=== PATIENT | male | born 1965 | race Caucasian/White ===

== ENCOUNTER 2017-07-10 10:21 | Emergency (ER) | payer BC ==
[~2017-07-10] VITALS: Ht 180.3 cm; Wt 69.5 kg
[2017-07-10 10:22] VITALS: BP 170/96
[2017-07-10] MEDS ORDERED: MELO7.5T7 (10:53)
[2017-07-10] MEDS ORDERED: IBUP-1022 PO (10:53)
[2017-07-10] MEDS ORDERED: RANI150T (10:53)
[2017-07-10] MEDS ORDERED: ACET-683 PO (10:53)
[2017-07-10] MEDS ORDERED: CYCL5TAB PO (10:54)
[2017-07-10] MEDS ORDERED: OXYC1TAB23 PO (11:31)
== END 2017-07-10 11:42 | disposition home or self-care (01) ==
LOC: M ED 10:21
DX: M54.12 Radiculopathy, cervical region (principal); Z72.0 Tobacco use

== ENCOUNTER → 2020-01-30 | Outpatient (CLI) | payer BC ==
[~2020-01-30] MED LIST: ACET-683 PO; CYCL5TAB PO; IBUP-1022 PO; MELO7.5T7; OXYC1TAB23 PO; PANT40TA29 PO; RANI150T; SILD20TA11 PO
== END ==
LOC: M LABSMTC 11:19
PROVIDERS: ATTEND Anesthesiology
DX: Z01.818 Encounter for other preprocedural examination (principal); Z11.59 Encounter for screening for other viral diseases
CPT/HCPCS: C9803; U0003

== ENCOUNTER 2020-02-04 06:48 | Day surgery (SDC) | payer BC ==
[~2020-02-04] VITALS: Ht 180.3 cm; Wt 65.8 kg
[2020-02-04] MEDS ORDERED: NS 1,000 ML IV ONE (07:00)
[2020-02-04] MEDS ORDERED: LIDOCAINE 2% 100MG/5ML SDV (FOR ANES.) As Ordered ONE (07:08)
[2020-02-04] MEDS ORDERED: propofoL 200 MG/20 ML VIAL As Ordered ONE (07:08)
[2020-02-04] MEDS ORDERED: fentaNYL 100 MCG/2 ML INJECTION (J3010) As Ordered ONE (07:12)
--- NOTE | 2020-02-04 07:45 | ROOR ---
Patient Name: Kyrie Hook Procedure Date: 02/04/2020 7:31 AM Date of : 1965 Age: 55 Room: [facility] Gender: Male Note Status: Finalized Procedure: Upper Endoscopy + Biopsies Indications: Heartburn, Exclusion of Christian's esophagus Providers: Blu Daniels MD Referring MD: James Coronado MD Requesting Provider: Medicines: Monitored Anesthesia Care Complications: No immediate complications. Procedure: Pre-Anesthesia Assessment: - The heart rate, respiratory rate, oxygen saturations, blood pressure, adequacy of pulmonary ventilation, and response to care were monitored throughout the procedure. The Endoscope was introduced through the mouth, and advanced to the second part of duodenum. The upper GI endoscopy was accomplished without difficulty. The patient tolerated the procedure well. Findings: The Z-line was irregular and was found 45 cm from the incisors. Multiple biopsies were obtained with cold forceps for evaluation to rule out Christian's Esophagus randomly at the gastroesophageal junction. A small hiatal hernia was present. No other significant abnormalities were identified in a careful examination of the stomach. The exam of the duodenum was otherwise normal. Impression: - Z-line irregular, 45 cm from the incisors. - Small hiatal hernia. - Multiple biopsies were obtained at the gastroesophageal junction. - The examination was otherwise normal. Recommendation: - Patient has a contact number available for emergencies. The signs and symptoms of potential delayed complications were discussed with the patient. Return to normal activities tomorrow. Written discharge instructions were provided to the patient. - High fiber diet. - Discharge patient to home. - Follow an antireflux regimen. - Continue present medications. - Await pathology results. - Telephone GI clinic for pathology results in 1 week. - Repeat upper endoscopy for surveillance based on pathology results. - The findings and recommendations were discussed with the patient. Blu Daniels MD Blu Daniels MD 02/04/2020 7:45:05 AM Electronically signed by Blu Daniels MD Number of Addenda: 0 Note Initiated On: 02/04/2020 7:31 AM Estimated Blood Loss: Estimated blood loss: none.
--- NOTE | 2020-02-04 08:06 | ROOR ---
Patient Name: Kyrie Hook Procedure Date: 02/04/2020 7:31 AM Date of : 1965 Age: 55 Room: [facility] Gender: Male Note Status: Finalized Procedure: Total Colonoscopy to Cecum + Biopsy Polypectomy Indications: Colon cancer screening in patient at increased risk: Colorectal cancer in brother Providers: Blu Daniels MD Referring MD: James Coronado MD Requesting Provider: Medicines: Monitored Anesthesia Care Complications: No immediate complications. Procedure: Pre-Anesthesia Assessment: - The heart rate, respiratory rate, oxygen saturations, blood pressure, adequacy of pulmonary ventilation, and response to care were monitored throughout the procedure. The Colonoscope was introduced through the anus and advanced to the cecum, identified by appendiceal orifice and ileocecal valve. The colonoscopy was performed without difficulty. The patient tolerated the procedure well. The quality of the bowel preparation was excellent. Findings: The perianal and digital rectal examinations were normal. Non-bleeding internal hemorrhoids were found during retroflexion. The hemorrhoids were small and Grade I (internal hemorrhoids that do not prolapse). Two flat polyps were found in the rectum. The polyps were diminutive in size. These polyps were removed with a cold biopsy forceps. Resection and retrieval were complete. No other significant abnormalities were identified in a careful examination of the remainder of the colon. The exam was otherwise without abnormality on direct and retroflexion views. Impression: - Non-bleeding internal hemorrhoids. - Two diminutive polyps in the rectum, removed with a cold biopsy forceps. Resected and retrieved. - The examination was otherwise normal on direct and retroflexion views. - The exam was otherwise normal to the cecum. Recommendation: - Patient has a contact number available for emergencies. The signs and symptoms of potential delayed complications were discussed with the patient. Return to normal activities tomorrow. Written discharge instructions were provided to the patient. - High fiber diet. - Discharge patient to home. - Continue present medications. - Await pathology results. - Telephone GI clinic for pathology results in 1 week. - Repeat colonoscopy in 5 years for screening purposes. - Return to referring physician. - The findings and recommendations were discussed with the patient. Blu Daniels MD Blu Daniels MD 02/04/2020 8:06:43 AM Electronically signed by Blu Daniels MD Number of Addenda: 0 Note Initiated On: 02/04/2020 7:31 AM Estimated Blood Loss: Estimated blood loss: none.
[2020-02-04 08:35] VITALS: BP 120/69
== END 2020-02-04 08:46 | disposition home or self-care (01) ==
LOC: M OPP 06:48
PROVIDERS: ATTEND Internal Medicine Gastroenterology
DX: Z12.11 Encounter for screening for malignant neoplasm of colon (principal); Z80.0 Family history of malignant neoplasm of digestive organs; K62.1 Rectal polyp; K64.8 Other hemorrhoids; K22.8 Other specified diseases of esophagus; K44.9 Diaphragmatic hernia without obstruction or gangrene; R12 Heartburn
CPT/HCPCS: 43239; 45380; 88305; J3010

== ENCOUNTER → 2020-05-15 | Outpatient (CLI) | payer BC ==
[~2020-05-15] MED LIST changes: +ISOVUE-370 76% 100ML VIAL As Ordered ONE
--- NOTE | 2020-05-15 15:47 | REP ---
INDICATION: PROSTATE CA. COMPARISON: None. TECHNIQUE/RADIOTRACER AND DOSE: 21.7 mCi of technetium 99m MDP was injected and standard whole-body bone scanning is acquired. FINDINGS: There is a normal distribution of skeletal tracer with uptake in bilateral kidneys and in the urinary bladder. There is no evidence to suggest skeletal metastatic disease. There is mild arthritic uptake pattern in the medial compartment of the right knee. Study is otherwise unremarkable. IMPRESSION: Negative whole body radionuclide bone scan. <Electronically signed by Thai Jimenes > 05/15/20 [id number]
--- NOTE | 2020-05-17 13:07 | REP ---
INDICATION: PROSTATE CA; CT 1ST NM 2ND. COMPARISON: None. TECHNIQUE: Axial contrast-enhanced images through the pelvis using 100 cc Isovue 370 intravenous contrast material with coronal and sagittal reformations. FINDINGS: Visualized portions of the enteric system are unremarkable including normal terminal ileum and appendix. Few scattered sigmoid diverticula noted without evidence for acute diverticulitis. Pelvis demonstrates relatively normal appearance of the bladder and mild heterogeneity of the prostate gland which measures roughly 3.5 x 3.0 x 3.3 cm. No obvious pelvic adenopathy. Few inguinal lymph nodes are nonspecific in appearance and measure up to approximately 9 mm. No pelvic fluid. The osseous structures are intact and without focal sclerotic or lytic lesions to suggest metastatic disease. IMPRESSION: No obvious mass lesion or evidence for metastatic disease related to prostate cancer. <Electronically signed by Jaison Simmons > 05/17/20 [id number]
== END ==
LOC: M RAD 10:00
PROVIDERS: ATTEND Urology
DX: C61 Malignant neoplasm of prostate (principal)

== ENCOUNTER → 2020-06-25 | Outpatient (REF) | payer BC ==
[~2020-06-25] MED LIST changes: -ISOVUE-370 76% 100ML VIAL As Ordered ONE
[2020-06-25 18:37] LABS: APPEARANCE, URINE CLEAR (CLEAR); BACTERIA, URINE AUTO NEGATIVE (NEGATIVE); BILIRUBIN, URINE AUTO NEGATIVE (NEGATIVE); BLOOD, URINE BLOOD NEGATIVE (NEGATIVE); COLOR, URINE YELLOW (YELLOW); GLUCOSE, URINE (UA) AUTO NEGATIVE (NEGATIVE); KETONE, URINE AUTO NEGATIVE (NEGATIVE); LEUKOCYTE ESTERASE, URINE AUTO NEGATIVE (NEGATIVE); NITRITE, URINE AUTO NEGATIVE (NEGATIVE); PROTEIN, URINE AUTO NEGATIVE (NEGATIVE); RBC, URINE AUTO 1 /HPF (0-3); SPECIFIC GRAVITY URINE AUTO 1.011 (1.002-1.035); SQUAMOUS EPITHELIAL CELL UR AU 0 /HPF (0-6); UROBILINOGEN, URINE AUTO 0.2 mg/dL (0.0-2.0); WBC, URINE AUTO 0 /HPF (0-3)
== END ==
LOC: M LAB REF 18:20
PROVIDERS: ATTEND Family Medicine
DX: Z01.818 Encounter for other preprocedural examination (principal); C61 Malignant neoplasm of prostate

== ENCOUNTER → 2020-07-29 | Outpatient (CLI) | payer BC ==
[~2020-07-29] MED LIST changes: +BICA50TA9 PO; +DOCU100C17 PO; +TRAZ-252 PO
--- NOTE | 2020-07-29 14:58 | RADONC.CN ---
Radiation Oncology Hx/Consult Radiation Oncology Consult Date of Service: Jul 29, 2020 Pt Identifier Kyrie Hook is a 55 year old male with [id number] [place] 5+3=8 PSA 5.83 stage ELHAM prostate cancer. He underwent RALP on 07/03/[address] Allen at [facility]. He is seen today for consideration of EBRT and ADT. Diagnosis/Treatment History Oncologic History Family history of prostate cancer (Father) Followed by PCP Dr. Coronado for elevated PSA/BERLIN abnormality PSA 5.83 on 03/12/20 Underwent TRUS biopsy on 04/02/20 which showed Paige 5+3=8 in the right gland overall 9 cores positive 05/15/20 CT pelvis and bone scan negative 07/03/[address] Allen [id number] stage ELHAM Interval History Here with his daughter. He is doing well post-operatively. He is mostly continent with only intermittent low volume leakage of urine. He is going through 2 pads daily. He has pre-existing ED prior to surgery. FORTUNATO 3. He has no problems with his bowels, has regular BMs daily. His appetite is good and energy and weight stable. Some social stressors, going through divorce. Smokes, not interested in quitting. Past Medical History: ED GERD Past Surgical History: As above Family History: Brother colon cancer Father prostate cancer Social History: Current smoker 57 pack year Drinks 14 std drinks per week Allergies / Meds Allergies: Coded Allergies: No Known Allergies (Unverified , 07/10/17) Home Meds Active Scripts Bicalutamide (Bicalutamide) 50 Mg Tablet, 1 TAB PO DAILY for 30 Days, #30 TAB Continue to take until prescription runs out Prov:PENNY NEVAREZ MD 07/29/20 Reported Medications Docusate Sodium (Docusate Sodium) 100 Mg Capsule, 100 MG PO BID for constipation for 7 Days, #14 CAP 07/29/20 Trazodone HCl (Trazodone HCl) 50 Mg Tablet, 50 MG PO QPM for 30 Days, #30 TAB 07/29/20 Sildenafil Citrate (Sildenafil Citrate) 20 Mg Tablet, 20 MG PO PRN, TAB 02/01/20 Pantoprazole Sodium (Pantoprazole Sodium) 40 Mg Tablet., 40 MG PO DAILY, TAB 02/01/20 Discontinued Reported Medications Cyclobenzaprine HCl (Cyclobenzaprine HCl) 5 Mg Tab, 5 MG PO PRN for PAIN OR FEVER, TAB 07/10/17 Ibuprofen (Ibuprofen) 600 Mg Tab, 1200 MG PO Q6H PRN for PAIN, #30 TAB 07/10/17 Review of Systems Constitutional: Denies: Chills, Fever, Night Sweats Eyes: Denies: Pain, Vision change HEENT: Denies: Head Aches, Dysphagia, Sore Throat Skin: Denies: Rash, Lesions, Bruising Pulmonary: Denies: Dyspnea, Cough Cardiovascular: Denies: Chest Pain, Palpitations, Edema Gastrointestinal: Denies: Nausea, Vomiting, Abdominal Pain, Diarrhea Genitourinary: Reports: Incontinence; Denies: Dysuria, Frequency, Hematuria Hematologic: Denies: Bruising, Petecchia, Enlarged Lymph Nodes Musculoskeletal: Denies: Neck pain, Back pain Neurological: Denies: Weakness, Numbness, Incoordination Psych: Reports: Mood Normal; Denies: Memory Issues, Thoughts of Self Harm Vital Signs Wt 157 T 98.7 P 78 RR 18 BP 132/78 O2 98% Pain 0 Fatigue 0 General Exam: Positive: Alert, Cooperative, No Acute Distress Eye Exam: Positive: PERRLA, EOMI ENT EXAM: Positive: Mucous membr. moist/pink, Pharynx Normal Neck Exam: Negative: Thyromegaly, Lymphadenopathy Chest Exam: Positive: Normal air movement; Negative: Rales, Rhonchi, Wheezing Heart Exam: Positive: Rate Normal, Regular Rhythm Abdomen Exam: Positive: Soft; Negative: Tenderness, Mass Extremity Exam: Negative: Edema, Tenderness Skin Exam: Positive: Nl turgor and temperature; Negative: Rash Neuro Exam: Positive: Normal Gait, Normal Speech, Cranial Nerves 3-12 NL Psych Exam: Positive: Mental status NL, Mood NL, Memory Intact Diagnostic and Laboratory Diagnostic Review Radiologic images, relevant labs and pathology reports were personally reviewed and discussed with Mr. Hook. Assessment and Plan Impression Mr. Hook is a 55 year old male with a history of [id number] [place] 5+3=8 PSA 5.83 stage ELHAM prostate cancer. He underwent RALP on 07/03/[address] Allen at [facility]. He is seen today for consideration of EBRT and ADT. Stage Prostate adenocarcinoma [id number] stage ELHAM Paige 5+3=8 PSA 5.83 Performance Status ECOG 0 Plan We had an extensive discussion with Mr. Hook regarding the diagnosis at hand and available therapeutic options. He is very young and fit and has a family history of prostate and colon cancers in first degree relatives. He would be appropriate for genetic testing on this basis, he wishes to consider this further. Will revisit next time. He is healing well post-operatively and has excellent early continence recovery. Expect he will make a full recovery soon. With respect to his node-positive prostate cancer, we discussed that the standard course of care would be to initiate ADT immediately with plan for 2 years duration and add salvage EBRT including the pelvic LNs once continence is fully regained. I would give 68.4 Gy in 38 fractions with VMAT. Any enlarged nodes on planning CT will receive a boost. This recommendations are in keeping with current NCCN guidelines. I have ordered a PSA and testosterone level today to serve as baseline, it is a little early post-operatively to trust the PSA is a true reflection of residual disease, the node positive status however, obviates the need for a true post- operative baseline reading in this setting. Kyrie states he has an appointment with Dr. Allen on 08/21/20. I would not anticipate EBRT to start until the end of August at this point. Kyrie would like to receive ADT here with me, so I will facilitate a Lupron injection in the next week or two. In the meantime he can take casodex 50 mg daily for 30 days. We discussed the logistics of receiving radiation therapy in detail including the need for a 1-time planning session. We reviewed the side effects of ADT and EBRT in great detail including hot flashes, weight gain, fatigue, urinary frequency, urinary urgency, diarrhea and late rectal bleeding. He already has pre-surgery ED and I explained that this is likely a complete and permanent phenomenon at this juncture. After discussing the risks, benefits and alternatives to radiation therapy, Mr. Hook was amenable to pursuing radiotherapy. All questions were answered to the patient's satisfaction. We instructed the patient that if there were any questions,concerns or changes in clinical status in the interim to contact us. Recommendations Salvage EBRT 68.4 Gy in 38 fractions including pelvic LNs once continent 2 years ADT Start casodex 50 mg daily Lupron injection next 1-2 weeks Consider referral to genetics given N1 status and family history PENNY NEVAREZ MD Jul 29, 2020 14:58
[2020-07-29 15:34] LABS: PROSTATIC SPECIFIC AG MONITOR 0.04 NG/ML (< 4.00)
== END ==
LOC: M ONCR 12:59
PROVIDERS: ATTEND General Practice
DX: C61 Malignant neoplasm of prostate (principal)
CPT/HCPCS: 36415; 84153; 84403; G0463

== ENCOUNTER → 2020-08-15 | Outpatient (CLI) | payer BC ==
[~2020-08-15] MED LIST changes: +LEUPROLIDE 45MG SYRINGE KIT (LUPRON DEPOT) (FOR ONCOLOGY) IM ONE
--- NOTE | 2020-08-15 15:38 | RADENCPD ---
Date/Time of Encounter Date of Encounter: Aug 15, 2020 Time of Encounter: 15:33 Encounter Kyrie is here for his first lupron injection. I reviewed with him the known OS benefit of immediate ADT in cases of pN1 prostate cancer such as his. Because we will administer salvage RT in the coming months once he regains full continence we will plan for 18 months duration. I reviewed his current PSA is still detectable post-RP which is not surprising. His baseline testosterone is normal. We reviewed the anticipated side effects of ADT including hot flashes, fatigue, joint pains, weight gain, and neurocognitive changes. These can be course limiting in some men but are usually manageable and I will help him with medications as needed. Informed consent for the injection was obtained. Plan: Lupron 45 mg today (note due to formulary issues/availability subsequent doses may be eligard or lupron) Continue casodex 50 mg until 30 day script runs out Follow up in late August for decision making regarding start of RT PSA/Testosterone at time of next follow up PENNY NEVAREZ MD Aug 15, 2020 15:38
[2020-08-15 15:50] VITALS: BP 130/82
== END ==
LOC: M ONCR 15:12
PROVIDERS: ATTEND General Practice
DX: C61 Malignant neoplasm of prostate (principal)
CPT/HCPCS: G0463; J9217

== ENCOUNTER → 2020-08-22 | Outpatient (REF) | payer BC ==
[~2020-08-22] MED LIST changes: -LEUPROLIDE 45MG SYRINGE KIT (LUPRON DEPOT) (FOR ONCOLOGY) IM ONE
== END ==
LOC: M LAB REF 09:56
PROVIDERS: ATTEND Family Medicine
DX: C61 Malignant neoplasm of prostate (principal)

== ENCOUNTER → 2020-09-10 | Outpatient (CLI) | payer BC ==
[~2020-09-10] MED LIST changes: +OXYB5TAB10 PO; +VENL37TA PO; +VENL75TA2 PO
--- NOTE | 2020-09-10 14:05 | RADENCPD ---
Date/Time of Encounter Date of Encounter: Sep 10, 2020 Time of Encounter: 14:01 Encounter Kyrie came in for a brief follow up now ~ 1 month post 45 mg lupron injection. He had soreness at the injection site for several days but that has resolved. He has been having hot flashes as his only significant side effect, these come and go and are predominantly at night. He has regained full continence, just has small amount of end stream dribbling a few drops. No additional urinary complaints. We discussed moving forward with RT in the coming weeks. Will arrange for simulation. We also discussed effexor for the hot flashes, he is willing to try. Rx for 37.5 mg BID sent. Will also confirm castrate level testosterone in the next few weeks. PENNY NEVAREZ MD Sep 10, 2020 14:05
== END ==
LOC: M ONCR 13:43
PROVIDERS: ATTEND General Practice
DX: C61 Malignant neoplasm of prostate (principal)

== ENCOUNTER → 2020-10-15 | Outpatient (RCR) | payer BC ==
[2020-10-07 16:10] LABS: PROSTATIC SPECIFIC AG MONITOR < 0.01 NG/ML (< 4.00)
[2020-10-07 16:18] LABS: TESTOSTERONE 11 NG/DL (241-827)
[~2020-10-15] MED LIST changes: -OXYB5TAB10 PO; -VENL75TA2 PO
== END ==
LOC: M ONCR 09-17 13:54
PROVIDERS: ATTEND General Practice
DX: C61 Malignant neoplasm of prostate (principal)

== ENCOUNTER → 2020-11-14 | Outpatient (RCR) | payer BC ==
[~2020-11-14] MED LIST changes: +OXYB5TAB10 PO; +VENL75TA2 PO
== END ==
LOC: M ONCR 10-16 15:13
PROVIDERS: ATTEND General Practice
DX: C61 Malignant neoplasm of prostate (principal)

== ENCOUNTER 2020-11-21 15:12 | Outpatient (RCR) | payer BC | END 2020-12-15 | LOC: M ONCR 15:12 | PROVIDERS: ATTEND General Practice | DX: C61 Malignant neoplasm of prostate (principal) ==

== ENCOUNTER → 2021-02-10 | Outpatient (CLI) | payer BC ==
[~2021-02-10] MED LIST changes: +LISI10TA22 PO
[2021-02-10 12:33] LABS: PROSTATIC SPECIFIC AG MONITOR < 0.01 NG/ML (< 4.00)
[2021-02-10 12:40] LABS: TESTOSTERONE 29 NG/DL (241-827)
== END ==
LOC: M ONCR 11:36
PROVIDERS: ATTEND General Practice
DX: C61 Malignant neoplasm of prostate (principal)

== ENCOUNTER → 2021-02-12 | Outpatient (CLI) | payer BC ==
[~2021-02-12] MED LIST changes: +LEUPROLIDE 45MG SYRINGE KIT (LUPRON DEPOT) (FOR ONCOLOGY) IM ONE; -LISI10TA22 PO
--- NOTE | 2021-02-12 16:13 | RADONC ---
Radiation Oncology Hx/FUP Radiation Oncology Hx/FUP Date of Service: Feb 12, 2021 Pt Identifier Kyrie Hook is a 56 year old male seen for a followup visit today at the department of radiation oncology for a history of [id number] Allen 5+3=8 PSA 5.83 stage ELHAM prostate cancer. He underwent RALP on 07/03/[address] Allen at [facility]. He completed adjuvant EBRT 11/21/20. He has been receiving ADT from 08/15/20, with a plan for 2 years of treatment. He is here for follow up prior to his next injection today. Diagnosis/Treatment History Oncologic History Family history of prostate cancer (Father) Followed by PCP Dr. Coronado for elevated PSA/BERLIN abnormality PSA 5.83 on 03/12/20 Underwent TRUS biopsy on 04/02/20 which showed Paige 5+3=8 in the right gland overall 9/12 cores positive 05/15/20 CT pelvis and bone scan negative 07/03/[address] Allen [id number] stage ELHAM 08/15/20 Lupron 45 mg 02/12/21 Lupron 45 mg 09/30/20-11/21/20 EBRT 68.4 Gy in 38 fractions with VMAT Recent data: 02/10/21 PSA <0.01 02/10/21 Testosterone 29 Interval History Here with his partner, reports that he has been having bothersome hot flashes and fatigue. He has no urinary complaints, or bowel complaints. He is reticent to continue ADT given the side effects. Current Therapy ADT Stage Prostate cancer [id number] Paige 5+3=8 Stage ELHAM Social History: Current smoker 57 pack year Drinks 14 std drinks per week Allergies / Meds Allergies: Coded Allergies: No Known Allergies (Unverified , 07/10/17) Home Meds Active Scripts Oxybutynin Chloride (Oxybutynin Chloride) 5 Mg Tablet, 1 TAB PO BID for urinary discomfort for 30 Days, #60 TAB 2 Refills Prov:PENNY NEVAREZ MD 11/10/20 Venlafaxine HCl (Venlafaxine HCl) 75 Mg Tablet, 1 TAB PO BID for 30 Days, #60 TAB 5 Refills Prov:PENNY NEVAREZ MD 11/10/20 Bicalutamide (Bicalutamide) 50 Mg Tablet, 1 TAB PO DAILY for 30 Days, #30 TAB Continue to take until prescription runs out Prov:PENNY NEVAREZ MD 07/29/20 Reported Medications Docusate Sodium (Docusate Sodium) 100 Mg Capsule, 100 MG PO BID for constipation for 7 Days, #14 CAP 07/29/20 Trazodone HCl (Trazodone HCl) 50 Mg Tablet, 50 MG PO QPM for 30 Days, #30 TAB 07/29/20 Sildenafil Citrate (Sildenafil Citrate) 20 Mg Tablet, 20 MG PO PRN, TAB 02/01/20 Pantoprazole Sodium (Pantoprazole Sodium) 40 Mg Tablet.dr, 40 MG PO DAILY, TAB 02/01/20 Review of Systems Review of Systems Constitutional: Reports: Night Sweats, Fatigue; Denies: Weight Loss Eyes: Denies: Pain HEENT: Denies: Head Aches Pulmonary: Denies: Dyspnea Cardiovascular: Denies: Chest Pain Gastrointestinal: Denies: Abdominal Pain, Hematochezia Genitourinary: Denies: Dysuria, Frequency Musculoskeletal: Denies: Neck pain, Back pain, Joint pain Neurological: Denies: Weakness, Numbness Psych: Reports: Mood Normal Physical Examination Vital Signs Wt 170 lbs T 96.4 P 89 RR 16 BP 129/81 O2 98% Pain 0 Fatigue 0 General Exam: Positive: Alert, Cooperative, No Acute Distress Eye Exam: Positive: PERRLA, EOMI ENT EXAM: Positive: Atraumatic Neck Exam: Positive: Supple Chest Exam: Positive: Clear to auscultation Heart Exam: Positive: Rate Normal Abdomen Exam: Positive: Soft Extremity Exam: Negative: Edema Neuro Exam: Positive: Normal Gait, Normal Speech, Cranial Nerves 3-12 NL Psych Exam: Positive: Mental status NL Diagnostic and Laboratory Diagnostic Review Radiologic images, relevant labs and pathology reports were personally reviewed and discussed with Mr. Hook. Assessment and Plan Impression Assessment Mr. Hook is a 56 year old male with a history of [id number] [place] 5+3=8 PSA 5.83 stage ELHAM prostate cancer. He underwent RALP on 07/03/[address] Allen at [facility]. He completed adjuvant EBRT 11/21/20. He has been receiving ADT from 08/15/20, with a plan for 2 years of treatment. He is here for follow up prior to his next injection today. He has appropriately suppressed PSA and testosterone. We discussed proceeding with the next lupron. With the support of his partner, he agreed. We discussed that we can try additional medication for his hot flashes if he desires. At this time he wants to hold off. Can call anytime if he wants to try something. He has stable weight which is good. He has no residual urinary or bowel side effects from RT. Will continue to monitor PSA and testosterone in advance of his next scheduled ADT injection due in July 2021. Performance Status ECOG 0 Plan Lupron 45 mg today Follow up in 6 months with PSA/testosterone for next injection. Mr. Hook was encouraged to call with questions or concerns in the interim period. Billing Statement Total time of [20] minutes was spent preparing for the visit [1], obtaining HPI [4], examining the patient [1], reviewing diagnostic tests [2], discussing management options [4], coordinating care [1], and writing this note [7]. PENNY NEVAREZ MD Feb 12, 2021 16:13
== END ==
LOC: M ONCR 13:52
PROVIDERS: ATTEND General Practice
DX: C61 Malignant neoplasm of prostate (principal); F17.210 Nicotine dependence, cigarettes, uncomplicated; Z80.42 Family history of malignant neoplasm of prostate
CPT/HCPCS: 96372; G0463

== ENCOUNTER 2021-04-08 12:52 | Emergency (ER) | payer BC ==
[~2021-04-08] VITALS: Ht 180.3 cm; Wt 78.2 kg
[~2021-04-08 12:52] MED LIST changes: -LEUPROLIDE 45MG SYRINGE KIT (LUPRON DEPOT) (FOR ONCOLOGY) IM ONE
--- NOTE | 2021-04-08 13:43 | REP ---
INDICATION: CHEST PAIN. COMPARISON: No comparison chest x-ray. TECHNIQUE: Portable upright AP chest radiograph. FINDINGS: The lungs are somewhat hyperinflated but clear. Pleural angles are sharp. Heart size is normal. Emphysematous changes are noted in the upper lobes bilaterally. EKG electrodes are visible. No significant bony abnormality seen. IMPRESSION: Hyperinflation. Otherwise no acute disease. <Electronically signed by Thai Jimenes > 04/08/21 [id number]
[2021-04-08 13:52] LABS: HEMOGLOBIN 14.4 g/dl (13.5-17.5); MEAN CORPUSCULAR HGB CONC 33.5 g/dl (32.0-36.5); MEAN CORPUSCULAR VOLUME 98.6 fl (80.0-96.0); PLATELET COUNT, AUTOMATED 239 10^3/uL (150-450); RED BLOOD COUNT 4.36 10^6/uL (4.30-6.10); WHITE BLOOD COUNT 4.2 10^3/uL (4.0-10.0)
[2021-04-08 14:45] LABS: ALBUMIN 3.8 GM/DL (3.2-5.2); ALT/SGPT 18 U/L (12-78); BILIRUBIN,DIRECT < 0.1 MG/DL (0.0-0.2); BILIRUBIN,TOTAL 0.3 MG/DL (0.2-1.0); BLOOD UREA NITROGEN 14 MG/DL (7-18); CALCIUM LEVEL 9.2 MG/DL (8.5-10.1); CARBON DIOXIDE LEVEL 30 MEQ/L (21-32); CHLORIDE LEVEL 105 MEQ/L (98-107); CK-MB VALUE MASS < 1.0 NG/ML (<3.6); CPK CREATINE PHOSPHOKINASE 68 U/L (39-308); CREATININE FOR GFR 0.92 MG/DL (0.70-1.30); GLOMERULAR FILTRATION RATE > 60.0 (>56); GLUCOSE, FASTING 80 MG/DL (70-100); LIPASE 128 U/L (73-393); MB/CK RELATIVE INDEX 1.47 (< OR =4); POTASSIUM SERUM 3.6 MEQ/L (3.5-5.1); SODIUM LEVEL 140 MEQ/L (136-145); TOTAL PROTEIN 6.9 GM/DL (6.4-8.2); TROPONIN I < 0.02 NG/ML (< 0.10)
[2021-04-08] MEDS ORDERED: NS 1,000 ML IV SCH (15:00)
[2021-04-08] MEDS ORDERED: ISOVUE-370 76% 100ML VIAL As Ordered ONE (15:07)
[2021-04-08 15:31] LABS: BASOPHILS 1 % (0-1); LYMPHOCYTES 25 % (16-44); MONOCYTES 8 % (0-5); NEUTROPHILS 63 % (28-66)
[2021-04-08 15:32] LABS: PLATELET ESTIMATE NORMAL (NORMAL)
--- NOTE | 2021-04-08 15:45 | REP ---
INDICATION: chest pain, sob r/o PE. COMPARISON: Radiograph today. TECHNIQUE: CT angiogram chest performed following the intravenous administration of 100 cc of Isovue 370. Sagittal and coronal reconstruction images are performed. FINDINGS: Lungs: There are bilateral emphysematous and fibro atelectatic changes. Mediastinum: No adenopathy. Pulmonary arteries: No evidence of pulmonary embolism. Clarice: No adenopathy. Axilla: No adenopathy. Pleura: No effusion. Heart: Not enlarged. Thoracic aorta: No aneurysm or dissection. Upper abdominal structures: There is a 1.3 cm cyst in the left lobe of the liver. Visualized osseous structures: There are mild degenerative changes of the spine. IMPRESSION: No CT evidence of pulmonary embolism. Emphysematous and fibro atelectatic changes both lungs. <Electronically signed by Bhaskar Taveras > 04/08/21 [id number]
[2021-04-08 16:09] LABS: CK-MB VALUE MASS 1.1 NG/ML (<3.6); CPK CREATINE PHOSPHOKINASE 45 U/L (39-308); MB/CK RELATIVE INDEX 2.44 (< OR =4); TROPONIN I < 0.02 NG/ML (< 0.10)
[2021-04-08] MEDS ORDERED: LISI10TA22 PO (16:39)
[2021-04-08 17:00] VITALS: BP 159/96
[2021-04-08 17:01] VITALS: BP 156/96
--- NOTE | 2021-04-09 23:55 | ECGEPIP ---
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
--- NOTE | 2021-04-09 23:59 | ECGEPIP ---
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 Order Number: [id number] Reading MD: Tremaine Olivas Measurements Intervals Gerald Rate: 81 P: 80 CA: 172 QRS: 63 QRSD: 86 T: 66 QT: 406 QTc: 471 Interpretive Statements SIMILAR TO PRIOR ON SAME DATE Normal sinus rhythm Left ventricular hypertrophy with repolarization abnormality ( Sokolow-Owen ) Electronically Signed on 04-09-2021 23:59:02 EDT by Tremaine Olivas
== END 2021-04-08 17:05 | disposition home or self-care (01) ==
LOC: M ED 12:52
DX: R07.89 Other chest pain (principal); R03.0 Elevated blood-pressure reading, without diagnosis of hypertension; J43.9 Emphysema, unspecified; K21.9 Gastro-esophageal reflux disease without esophagitis; F32.9 Major depressive disorder, single episode, unspecified; Z85.46 Personal history of malignant neoplasm of prostate; F17.200 Nicotine dependence, unspecified, uncomplicated; Z79.899 Other long term (current) drug therapy
CPT/HCPCS: 36415; 71045; 71275; 80048; 80076; 82550; 82553; 83690; 84484; 85025; 93005; 93041; 94760; 96360; 99285; Q9967

== ENCOUNTER → 2021-06-23 | Outpatient (CLI) | payer BC ==
[~2021-06-23] MED LIST changes: +LISI10TA22 PO
--- NOTE | 2021-06-23 13:41 | REP ---
INDICATION: OTH SYMPTOMS AND SIGNS INVOLVING CIRC AND RESP SYSTEMS COMPARISON: None. TECHNIQUE: Taveras scale and color Doppler evaluation using linear high frequency transducer Findings: FINDINGS: Two-dimensional taveras scale and color images demonstrate atherosclerotic changes and visible narrowing through the left proximal internal carotid artery. Remainder of the bilateral examination demonstrates minimal age-related atheromatous changes. Normal flow direction is appreciated in the bilateral vertebral arteries. ICA peak systolic velocity: Right 112.0 cm/s; Left 246.0 cm/s ICA diastolic velocity: Right 47.4 cm/s; Left 86.6 cm/s ECA peak systolic velocity: Right 107.0 cm/s; Left 150.0 cm/s CCA peak systolic velocity: Right 158.0 cm/s; Left 150.0 cm/s ICA/CCA ratio: Right 0.71 cm/s; Left 1.69 cm/s IMPRESSION: Narrowing in the left proximal internal carotid artery within the 50-69% range. <Electronically signed by Jaison Simmons > 06/23/21 [id number]
== END ==
LOC: M RAD 09:56
PROVIDERS: ATTEND Internal Medicine Cardiovascular Disease
DX: R09.89 Other specified symptoms and signs involving the circulatory and respiratory systems (principal); I65.22 Occlusion and stenosis of left carotid artery

== ENCOUNTER → 2021-08-13 | Outpatient (CLI) | payer BC ==
[~2021-08-13] MED LIST changes: +LEUPROLIDE 45MG SYRINGE KIT (LUPRON DEPOT) (FOR ONCOLOGY) IM ONE
== END ==
LOC: M ONCR 11:42
PROVIDERS: ATTEND General Practice
DX: C61 Malignant neoplasm of prostate (principal); F17.210 Nicotine dependence, cigarettes, uncomplicated; Z92.3 Personal history of irradiation; Z79.890 Hormone replacement therapy; Z79.899 Other long term (current) drug therapy

== ENCOUNTER 2021-11-29 21:03 | Emergency (ER) | payer BC ==
[~2021-11-29] VITALS: Ht 180.3 cm; Wt 76.4 kg
[~2021-11-29 21:03] MED LIST changes: -LEUPROLIDE 45MG SYRINGE KIT (LUPRON DEPOT) (FOR ONCOLOGY) IM ONE
[2021-11-29 21:43] LABS: BILIRUBIN, URINE MANUAL NEGATIVE (NEGATIVE); GLUCOSE, URINE (UA) MANUAL NEGATIVE (NEGATIVE); KETONE, URINE MANUAL NEGATIVE (NEGATIVE); UROBILINOGEN, URINE MANUAL NORMAL (NORMAL)
[2021-11-29 21:51] LABS: RBC, URINE TNTC /hpf (0-3); SQUAMOUS EPITHELIAL CELL URINE NONE SEEN /hpf (SMALL AMT)
[2021-11-29 21:52] LABS: BACTERIA, URINE NONE SEEN; HYALINE CAST, URINE NONE SEEN /lpf (0-1)
[2021-11-29 21:54] LABS: BASO # 0.1 10^3/uL (0.0-0.2); BASO % 1.1 % (0.0-1.0); EOS # 0.2 10^3/uL (0.0-0.5); EOS % 2.2 % (0.0-3.0); HEMATOCRIT 41.2 % (42.0-52.0); HEMOGLOBIN 13.8 g/dl (13.5-17.5); LYMPH # 1.3 10^3/uL (1.5-5.0); LYMPH % 17.6 % (24.0-44.0); MEAN CORPUSCULAR HEMOGLOBIN 32.3 pg (27.0-33.0); MEAN CORPUSCULAR HGB CONC 33.5 g/dl (32.0-36.5); MEAN CORPUSCULAR VOLUME 96.5 fl (80.0-96.0); MONO # 0.5 10^3/uL (0.0-0.8); MONO % 7.3 % (2.0-8.0); NEUTROPHILS # 5.2 10^3/uL (1.5-8.5); NEUTROPHILS % 71.5 % (36.0-66.0); PLATELET COUNT, AUTOMATED 274 10^3/uL (150-450); RED BLOOD COUNT 4.27 10^6/uL (4.30-6.10); WHITE BLOOD COUNT 7.2 10^3/uL (4.0-10.0)
[2021-11-29 22:17] LABS: BLOOD UREA NITROGEN 13 MG/DL (7-18); CALCIUM LEVEL 9.1 MG/DL (8.5-10.1); CARBON DIOXIDE LEVEL 27 MEQ/L (21-32); CHLORIDE LEVEL 105 MEQ/L (98-107); CREATININE FOR GFR 1.12 MG/DL (0.70-1.30); GLOMERULAR FILTRATION RATE > 60.0 (>56); GLUCOSE, FASTING 79 MG/DL (70-100); POTASSIUM SERUM 3.8 MEQ/L (3.5-5.1); SODIUM LEVEL 140 MEQ/L (136-145)
[2021-11-30] MEDS ORDERED: CYCL-707 (02:52)
[2021-11-30 06:26] VITALS: BP 165/89
== END 2021-11-30 06:27 | disposition home or self-care (01) ==
LOC: M ED 21:03
DX: R31.9 Hematuria, unspecified (principal); F17.200 Nicotine dependence, unspecified, uncomplicated; K21.9 Gastro-esophageal reflux disease without esophagitis; F32.A Depression, unspecified; Z79.899 Other long term (current) drug therapy; Z85.46 Personal history of malignant neoplasm of prostate; Z98.890 Other specified postprocedural states

== ENCOUNTER → 2021-12-16 | Outpatient (CLI) | payer BC ==
[~2021-12-16] MED LIST changes: +CYCL-707; +ISOVUE-370 76% 100ML VIAL As Ordered ONE
== END ==
LOC: M RAD 16:04
PROVIDERS: ATTEND Physician Assistant
DX: R31.0 Gross hematuria (principal); N28.89 Other specified disorders of kidney and ureter
CPT/HCPCS: 74178; Q9967

== ENCOUNTER → 2022-01-27 | Outpatient (CLI) | payer BC ==
[~2022-01-27] MED LIST changes: -ISOVUE-370 76% 100ML VIAL As Ordered ONE; +LEUPROLIDE 45MG SYRINGE KIT (LUPRON DEPOT) (FOR ONCOLOGY) IM ONE
[2022-01-27 12:45] LABS: PROSTATIC SPECIFIC AG MONITOR < 0.01 NG/ML (< 4.00)
[2022-01-27 13:15] LABS: TESTOSTERONE 17 NG/DL (241-827)
== END ==
LOC: M ONCR 11:21
PROVIDERS: ATTEND General Practice
DX: Z08 Encounter for follow-up examination after completed treatment for malignant neoplasm (principal); R23.2 Flushing; R53.83 Other fatigue; Z85.46 Personal history of malignant neoplasm of prostate; Z90.79 Acquired absence of other genital organ(s); Z92.3 Personal history of irradiation; Z79.818 Long term (current) use of other agents affecting estrogen receptors and estrogen levels; F17.210 Nicotine dependence, cigarettes, uncomplicated; Z80.42 Family history of malignant neoplasm of prostate; Z79.899 Other long term (current) drug therapy
CPT/HCPCS: 84153; 84403; G0463

== ENCOUNTER → 2022-04-30 | Outpatient (CLI) | payer BC ==
[~2022-04-30] MED LIST changes: -LEUPROLIDE 45MG SYRINGE KIT (LUPRON DEPOT) (FOR ONCOLOGY) IM ONE
[2022-04-30 14:54] LABS: PROSTATIC SPECIFIC AG MONITOR < 0.01 NG/ML (< 4.00)
[2022-04-30 15:33] LABS: TESTOSTERONE 446 NG/DL (241-827)
== END ==
LOC: M LAB 13:15
PROVIDERS: ATTEND General Practice
DX: C61 Malignant neoplasm of prostate (principal)

== ENCOUNTER → 2022-05-03 | Outpatient (CLI) | payer BC | LOC: M ONCR 09:55 | PROVIDERS: ATTEND General Practice | DX: C61 Malignant neoplasm of prostate (principal); F17.210 Nicotine dependence, cigarettes, uncomplicated; R19.4 Change in bowel habit; R31.9 Hematuria, unspecified; R23.2 Flushing; Z79.899 Other long term (current) drug therapy; Z80.42 Family history of malignant neoplasm of prostate; Z90.79 Acquired absence of other genital organ(s); Z92.23 Personal history of estrogen therapy; Z92.3 Personal history of irradiation ==

== ENCOUNTER → 2022-06-26 | Outpatient (CLI) | payer BC | LOC: M RAD 09:34 → M LAB 09:34 | PROVIDERS: ATTEND Physician Assistant | DX: S20.211A Contusion of right front wall of thorax, initial encounter (principal); X58.XXXA Exposure to other specified factors, initial encounter; Y92.9 Unspecified place or not applicable; Y93.9 Activity, unspecified; Y99.9 Unspecified external cause status; J44.9 Chronic obstructive pulmonary disease, unspecified ==

== ENCOUNTER → 2023-03-29 | Outpatient (CLI) | payer BC | LOC: M RAD 14:01 | PROVIDERS: ATTEND Family Medicine | DX: Z12.2 Encounter for screening for malignant neoplasm of respiratory organs (principal); F17.210 Nicotine dependence, cigarettes, uncomplicated; R91.1 Solitary pulmonary nodule; J43.2 Centrilobular emphysema ==

== ENCOUNTER → 2023-05-16 | Outpatient (CLI) | payer BC ==
[~2023-05-16] MED LIST changes: -OXYB5TAB10 PO; +OXYB5TAB11 PO
== END ==
LOC: M ONCR 13:52
PROVIDERS: ATTEND General Practice
DX: C61 Malignant neoplasm of prostate (principal); N52.31 Erectile dysfunction following radical prostatectomy; F17.210 Nicotine dependence, cigarettes, uncomplicated; Z71.2 Person consulting for explanation of examination or test findings; Z79.899 Other long term (current) drug therapy; Z90.79 Acquired absence of other genital organ(s); Z92.3 Personal history of irradiation
CPT/HCPCS: 36415; 84153; 84403; G0463

== ENCOUNTER → 2024-05-15 | Outpatient (CLI) | payer BC ==
[~2024-05-15] MED LIST changes: +BICA50TA4 PO; -BICA50TA9 PO; +HYOS1TAB PO; -OXYB5TAB11 PO; +OXYB5TAB14 PO
== END ==
LOC: M ONCR 13:04
PROVIDERS: ATTEND General Practice
DX: C61 Malignant neoplasm of prostate (principal); R15.2 Fecal urgency; R19.4 Change in bowel habit; F17.210 Nicotine dependence, cigarettes, uncomplicated; Z79.899 Other long term (current) drug therapy; Z80.42 Family history of malignant neoplasm of prostate; Z90.79 Acquired absence of other genital organ(s); Z92.3 Personal history of irradiation
CPT/HCPCS: 36415; 84153; G0463

== ENCOUNTER → 2024-07-16 | Outpatient (CLI) | payer BC ==
[~2024-07-16] MED LIST changes: -CYCL5TAB PO; +CYCL5TAB4 PO
== END ==
LOC: M RAD 15:36
PROVIDERS: ATTEND Family Medicine
DX: F17.210 Nicotine dependence, cigarettes, uncomplicated (principal)

== ENCOUNTER 2025-05-06 07:35 | Day surgery (SDC) | payer BC ==
[~2025-05-06] VITALS: Ht 180.3 cm; Wt 73.7 kg
[~2025-05-06 07:35] MED LIST changes: -CYCL-707; +CYCL-707 PO; +ERGO500029 PO; -IBUP-1022 PO; +IBUP600T42 PO; -SILD20TA11 PO; +SILD20TA64 PO
[2025-05-06] MEDS ORDERED: LIDOCAINE 2% 100 MG/5 ML SDV (FOR ANES.) As Ordered ONE (08:38)
[2025-05-06] MEDS ORDERED: ONDANSETRON 4MG 2ML VIAL As Ordered ONE (08:53)
[2025-05-06 09:42] VITALS: TEMP 97.9
[2025-05-06 09:53] VITALS: BP 133/72; O2SAT 97
== END 2025-05-06 10:00 | disposition home or self-care (01) ==
LOC: M OPP 07:35
PROVIDERS: ATTEND Internal Medicine Gastroenterology
DX: Z12.11 Encounter for screening for malignant neoplasm of colon (principal); K64.0 First degree hemorrhoids; Z80.0 Family history of malignant neoplasm of digestive organs; K44.9 Diaphragmatic hernia without obstruction or gangrene; K31.89 Other diseases of stomach and duodenum; R12 Heartburn; Z79.899 Other long term (current) drug therapy; F17.210 Nicotine dependence, cigarettes, uncomplicated; F17.290 Nicotine dependence, other tobacco product, uncomplicated
CPT/HCPCS: 43239; 45378; 88305; J2405; J3010

== ENCOUNTER → 2025-05-14 | Outpatient (CLI) | payer BC | LOC: M ONCR 12:51 | PROVIDERS: ATTEND General Practice | DX: C61 Malignant neoplasm of prostate (principal); Z90.79 Acquired absence of other genital organ(s); Z92.3 Personal history of irradiation; Z92.29 Personal history of other drug therapy; Z80.42 Family history of malignant neoplasm of prostate; F17.210 Nicotine dependence, cigarettes, uncomplicated; Z72.89 Other problems related to lifestyle; Z79.899 Other long term (current) drug therapy ==